=== PATIENT | male | born 1985 | race Caucasian/White ===

== ENCOUNTER 2019-07-19 15:46 | Emergency (ER) | payer OTHER ==
[2019-07-19 16:22] LABS: BILIRUBIN,URINE NEGATIVE (NEGATIVE); GLUCOSE, URINE (UA) NEGATIVE (NEGATIVE); KETONES,URINE (UA) NEGATIVE (NEGATIVE); LEUKOCYTE ESTERASE, URINE NEGATIVE (NEGATIVE); NITRITE,URINE NEGATIVE (NEGATIVE); OCCULT BLOOD,URINE NEGATIVE (NEGATIVE); PH,URINE 7.5 PH (5.0-7.5); PROTEIN,URINE NEGATIVE (NEGATIVE); UROBILINOGEN,URINE 0.2 (NORMAL) E.U./dL (NORMAL)
[2019-07-19 16:24] LABS: CLARITY,URINE CLEAR (CLEAR)
[2019-07-19] MEDS ORDERED: AZITHROMYCIN 100 MG/5 ML SYRINGE PO STA (17:30)
[2019-07-19] MEDS ORDERED: LIDOCAINE 1% 2 ML VIAL MC ONE (17:30)
[2019-07-19] MEDS ORDERED: cefTRIAXone 250 MG VIAL IM STA (17:30)
--- NOTE | 2019-07-19 17:30 | ED Physician Documentation ---
PD HPI MALE - Stated complaint Stated Complaint: MALE - Chief complaint Chief Complaint: UTI - History obtained from History obtained from: Patient (The patient reports that he approximately 2 weeks ago was over in [place] on vacation had unprotected intercourse when the condom broke. It was a 1 night relationship. He does not know any other information about female. Approximately a week ago he developed symptoms of a "underlying irritation" that gets worse with urination. He denies any urethral discharge. He denies any penile lesions any scrotal swelling, tenderness, or ecchymosis. He denies fevers chills nausea vomiting. He admits to having chlamydia 1 other time in his past and he was treated for. No other concerns today.) Review of Systems Constitutional: reports: Reviewed and negative Eyes: reports: Reviewed and negative Nose: reports: Reviewed and negative Cardiac: reports: Reviewed and negative Respiratory: reports: Reviewed and negative GI: reports: Reviewed and negative : reports: Dysuria. denies: Frequency, Hesitancy, Hematuria, Discharge, Testicular pain, Testicular mass Skin: denies: Rash, Lesions Musculoskeletal: denies: Joint pain PD PAST MEDICAL HISTORY - Past Medical History Past Medical History: No - Allergies Allergies/Adverse Reactions: Allergies Allergy/AdvReac Type Severity Reaction Status Date / Time No Known Drug Allergies Allergy Verified 07/19/19 15:49 PD ED PE NORMAL - General General: Alert and oriented X 3, No acute distress, Well developed/nourished - HEENT HEENT: Atraumatic, PERRL, EOMI - Neck Neck: No adenopathy - Cardiac Cardiac: RRR - Respiratory Respiratory: No respiratory distress, Clear bilaterally - Rectal Rectal: Deferred PD ED PE EXPANDED - Male Male : Normal Exam Results - Vitals Vitals: Vital Signs - 24 hr 07/19/19 07/19/19 15:49 18:14 Temperature 36.9 C Heart Rate 73 71 Respiratory 16 16 Rate Blood Pressure 153/88 H 149/89 H O2 Saturation 98 100 Oxygen O2 Source Room air - Labs Labs: Laboratory Tests 07/19/19 07/19/19 16:05 16:05 Urine Color YELLOW Urine Clarity CLEAR Urine pH 7.5 Ur Specific Rankin <=1.005 Urine Protein NEGATIVE Urine Glucose (UA) NEGATIVE Urine Ketones NEGATIVE Urine Occult Blood NEGATIVE Urine Nitrite NEGATIVE Urine Bilirubin NEGATIVE Urine Urobilinogen 0.2 (NORMAL) Ur Leukocyte Esterase NEGATIVE Ur Microscopic Review NOT INDICATED Urine Culture Comments NOT INDICATED Chlam trachomat DNA PCR NEGATIVE N.gonorrhoeae DNA (PCR) NEGATIVE T. vaginalis (PCR) NEGATIVE PD MEDICAL DECISION MAKING - ED course Complexity details: reviewed results, considered differential, d/w patient (Discussed with the patient and negative UA results today, and his recent condom break then the most likely diagnosis here is gonorrhea chlamydia. He is agreed to be treated today. He has no information on the female that he was with and no way to contact her.), other (Rocephin 250 mg IM x1, azithromycin 1000 mg p.o. x1 given in the ED today.) Departure - Departure Disposition: 01 Home, Self Care Condition: Good Instructions: STDs Comments: The results of the test being sent out today should be available for tomorrow you will be contacted if they come back positive. I advised no sexual intercourse for a week. Follow-up with your PCP in 1 to 2 weeks if your symptoms fail to improve. Discharge Date/Time: 07/19/19 18:15
[2019-07-19] MEDS ORDERED: AZITHROMYCIN 250 MG TABLET PO STA (17:50)
[2019-07-19 18:15] VITALS: BP 149/89
[2019-07-19 21:20] LABS: TRICHOMONAS VAGINALIS DNA NEGATIVE (NEGATIVE)
== END 2019-07-19 18:15 | disposition home or self-care (01) ==
LOC: ED 15:46
DX: R30.0 Dysuria (principal); Z20.2 Contact with and (suspected) exposure to infections with a predominantly sexual mode of transmission
CPT/HCPCS: 81001; 81003; 87086; 87491; 87591; 87661; 96372; 99283; 99284

== ENCOUNTER 2020-11-16 15:49 | Emergency (ER) | payer OTHER ==
[2020-11-16 15:54] VITALS: BP 134/88
[2020-11-16] MEDS ORDERED: HYDROmorphone 2 MG/ML VIAL IM STA (16:09)
[2020-11-16] MEDS ORDERED: KETOROLAC 15 MG/ML VIAL IM STA (16:09)
--- NOTE | 2020-11-16 16:15 | ED Physician Documentation ---
PD HPI BACK PAIN - Stated complaint Stated Complaint: BACK INJ - Chief complaint Chief Complaint: Back Pain - History obtained from History obtained from: Patient - Additional information Additional information: Liting his son sam today and felt pulling L back and now significant pain and increasaed with motion. No saddle anesthesia, no neuro sx. no incontinence, or fever Review of Systems Constitutional: reports: Reviewed and negative Ears: reports: Reviewed and negative Nose: reports: Reviewed and negative Throat: reports: Reviewed and negative Cardiac: reports: Reviewed and negative PD PAST MEDICAL HISTORY - Past Medical History Respiratory: Sleep apnea - Past Surgical History Past Surgical History: Yes HEENT: Tonsil/Adenoidectomy - Present Medications Home Medications: Ambulatory Orders Medication Instructions Recorded Confirmed Cyclobenzaprine [Flexeril] 10 mg PO TID PRN #10 tablet 11/16/20 HYDROcod/ACETAM 5/325 [[place] 5/325] 1 - 2 tab PO Q6H PRN #15 tablet 11/16/20 Ibuprofen [Motrin] 800 mg PO Q8H PRN #30 tablet 11/16/20 - Allergies Allergies/Adverse Reactions: Allergies Allergy/AdvReac Type Severity Reaction Status Date / Time No Known Drug Allergies Allergy Verified 11/16/20 15:53 - Social History Does the pt smoke?: Yes Smoking Status: Current every day smoker Does the pt drink ETOH?: No Does the pt have substance abuse?: No - Immunizations Immunizations are current?: Yes - POLST Patient has POLST: No PD ED PE NORMAL - Vitals Vital signs reviewed: Yes - General General: Alert and oriented X 3, No acute distress - Back Back: No spinal TTP, Other (TTP L paralumbar msk) - Derm Derm: Normal color, Warm and dry - Extremities Extremities: Other (The patient has equal and normal Achilles and patellar reflexes bilaterally. Normal sensation in all areas of the legs. Patient denies saddle anesthesia. Normal strength in flexion-extension at the ankles, knees, and flexion of the hips.) - Neuro Neuro: Alert and oriented X 3, Normal speech - Psych Psych: Normal mood, Normal affect Results - Vitals Vitals: Vital Signs - 24 hr 11/16/20 15:51 Heart Rate 88 Respiratory 18 Rate Blood Pressure 134/88 H O2 Saturation 97 Oxygen O2 Source Room air PD MEDICAL DECISION MAKING - ED course ED course: 35-year-old gentleman with back spasm. Nothing in the history or physical to suggest a more centered or sinister cause. Feeling better after divided doses of medications here and more mobile. I am prescribing a short course of short-acting opioid pain medication for this patient. I have reviewed the patients [employer] and no concerning findings were noted. I have discussed that the opioids are for short term therapy only, and will not be refilled from the ED. Departure - Departure Disposition: 01 Home, Self Care Clinical Impression: Back spasm Condition: Good Record reviewed to determine appropriate education?: Yes Instructions: ED Low Back Pain Injury Prescriptions: Cyclobenzaprine [Flexeril] 10 mg PO TID PRN #10 tablet PRN Reason: Spasms Ibuprofen [Motrin] 800 mg PO Q8H PRN #30 tablet PRN Reason: PAIN &/OR FEVER HYDROcod/ACETAM 5/325 [[place] 5/325] 1 - 2 tab PO Q6H PRN #15 tablet PRN Reason: Pain Comments: Call your doctor to arrange a follow-up appointment, make the next available appointment. In the interim, return anytime if worse or if new symptoms develop. I am prescribing a short course of narcotic pain medication for you. These are potentially dangerous and addictive medications that should be used carefully. These medications may constipate you. Take an [id number] stool softener (docusate) twice daily with plenty of water while taking these medications. If you go 24 hours without a bowel movement, take [id number] miralax, per package instructions. Do not drink or drive while taking these medications. If you received narcotic or sedating medications while in the emergency de partment, do not drive for 24 hours. Store this medication in a safe, secure place and out of reach of children. It is a violation of federal law to give or sell this medication to another person or to use in a manner other than prescribed. The ED will not refill narcotic prescriptions, including prescriptions lost or stolen. To dispose of unwanted medications: 1. [facility] [address] in [place] has a medication drop box. They accept prescription medications (in pill form) Wednesday through Wednesday 9:00 a.m. to 5:00 p.m. 2. The [facility] [employer] accepts prescription medications (in pill form only) for disposal year round. Call for more information. 3. Contact the [facility] for the next [facility] sponsored prescription drug collection event. , [phone], or [phone]; Note that many narcotic pain relievers also contain Tylenol/acetaminophen. Please ensure that your total dose of acetaminophen from all sources does not exceed 3 g (3000 mg) per day. Forms: Activity restrictions
[2020-11-16] MEDS ORDERED: HYDROmorphone 1 MG/ML CARPUJECT IM STA (17:08)
[2020-11-16] MEDS ORDERED: LORazepam 2 MG/ML VIAL IM STA (17:08)
[2020-11-16] MEDS ORDERED: CYCLOBENZAPRINE 10 MG Prepack 2 PO PRN (18:13)
[2020-11-16] MEDS ORDERED: HYDROcod/ACET 5/325 Prepack 4 PO STA (18:13)
== END 2020-11-16 18:23 | disposition home or self-care (01) ==
LOC: ED 15:49
DX: M62.830 Muscle spasm of back (principal); M54.5 Low back pain; F17.200 Nicotine dependence, unspecified, uncomplicated
CPT/HCPCS: 96372; 99283; 99284; J1170; J2060